=== PATIENT | male | born 1975 | race Two or more races ===

== ENCOUNTER 2021-11-17 16:00 | Outpatient (CLI) | payer OTHER | END 2021-11-17 16:22 | disposition home or self-care (01) | LOC: LAB 16:00 | DX: D64.9 Anemia, unspecified (principal); E88.9 Metabolic disorder, unspecified; D68.8 Other specified coagulation defects; N39.0 Urinary tract infection, site not specified; A49.02 Methicillin resistant Staphylococcus aureus infection, unspecified site; E11.9 Type 2 diabetes mellitus without complications; Z76.89 Persons encountering health services in other specified circumstances; Z03.818 Encounter for observation for suspected exposure to other biological agents ruled out ==